=== PATIENT | female | born 1945 | race Hispanic/Latino ===

== ENCOUNTER 2017-06-07 17:35 | Emergency (ER) | payer MEDICARE, MEDICAID ==
[2017-06-07] MEDS ORDERED: Lidocaine 1% w/Epinephrine 1:100K 20 ML VIAL ONE (17:53)
[2017-06-07 19:21] LABS: #Eosinphils 0.1 thou/uL (0.0-0.7); #Lymphocytes 1.9 thou/uL (1.20-3.40); #Monocytes 0.7 thou/uL (0.11-0.59); #Neutrophils 4.2 thou/uL (1.40-6.50); %Basophils 0.7 % (0.0-1.0); %Eosinophils 1.4 % (0.0-10.0); %Lymphocytes 27.9 % (21.0-51.0); %Monocytes 9.9 % (0.0-10.0); %Neutrophils 60.2 % (42.0-75.0); Hemoglobin 11.4 g/dL (12.0-16.0); Mean Corpuscular HGB CONC 32.4 g/dL (32.0-36.0); Mean Corpuscular Hemoglobin 31.8 pg (27.0-31.0); Mean Corpuscular Volume 98.2 fl (81.0-99.0); Mean Platelet Volume 8.5 fL (7.4-10.4); Platelet Count 173 thou/uL (130-400); RBC Distribution Width 13.9 % (11.5-14.5); Red Blood Cell (RBC) Count 3.59 mill/uL (4.20-5.40)
[2017-06-07 19:27] LABS: Prothrombin Time 46.5 SEC (12.0-14.7)
[2017-06-07 19:30] LABS: INR-International Normal Ratio 4.7
== END 2017-06-07 19:45 | disposition home or self-care (01) ==
LOC: ERS 17:35
DX: T82.838A Hemorrhage due to vascular prosthetic devices, implants and grafts, initial encounter (principal); R79.1 Abnormal coagulation profile; I13.2 Hypertensive heart and chronic kidney disease with heart failure and with stage 5 chronic kidney disease, or end stage renal disease; N18.6 End stage renal disease; E10.22 Type 1 diabetes mellitus with diabetic chronic kidney disease; E78.5 Hyperlipidemia, unspecified
CPT/HCPCS: 12001; 36415; 85025; 85610; J2001

== ENCOUNTER 2017-10-05 09:57 | Emergency (ER) | payer MEDICARE, MEDICAID ==
[2017-10-05] MEDS ORDERED: Lidocaine 1% w/Epinephrine 1:100K 20 ML VIAL ONE (10:57)
== END 2017-10-05 11:26 | disposition home or self-care (01) ==
LOC: ERS 09:57
DX: T82.838A Hemorrhage due to vascular prosthetic devices, implants and grafts, initial encounter (principal); S41.131A Puncture wound without foreign body of right upper arm, initial encounter; E10.22 Type 1 diabetes mellitus with diabetic chronic kidney disease; I48.91 Unspecified atrial fibrillation; I12.0 Hypertensive chronic kidney disease with stage 5 chronic kidney disease or end stage renal disease; N18.6 End stage renal disease; E78.5 Hyperlipidemia, unspecified
CPT/HCPCS: 12001; J2001

== ENCOUNTER 2017-12-03 18:37 | Emergency (ER) | payer MEDICARE, MEDICAID ==
[2017-12-03] MEDS ORDERED: Lidocaine 1% w/Epinephrine 1:100K 20 ML VIAL ONE (18:50)
[2017-12-03 19:23] LABS: #Basophils 0.1 thou/uL (0.0-0.2); #Eosinphils 0.1 thou/uL (0.0-0.7); #Lymphocytes 1.8 thou/uL (1.20-3.40); #Monocytes 0.9 thou/uL (0.11-0.59); #Neutrophils 5.5 thou/uL (1.40-6.50); %Basophils 0.9 % (0.0-1.0); %Eosinophils 1.2 % (0.0-10.0); %Lymphocytes 21.9 % (21.0-51.0); %Monocytes 10.4 % (0.0-10.0); %Neutrophils 65.6 % (42.0-75.0); Hemoglobin 11.1 g/dL (12.0-16.0); Mean Corpuscular HGB CONC 34.5 g/dL (32.0-36.0); Mean Corpuscular Hemoglobin 33.1 pg (27.0-31.0); Mean Corpuscular Volume 95.9 fL (78.0-98.0); Mean Platelet Volume 7.6 fL (7.4-10.4); Platelet Count 134 thou/uL (130-400); RBC Distribution Width 12.6 % (11.5-14.5); Red Blood Cell (RBC) Count 3.36 mill/uL (4.20-5.40); White Blood Cell (WBC) Count 8.4 thou/uL (4.8-10.8)
[2017-12-03 19:27] LABS: INR-International Normal Ratio 1.8; PTT 36.5 SEC (22.9-36.1); Prothrombin Time 21.2 SEC (12.0-14.7)
[2017-12-03 19:42] LABS: ALT (SGPT) 34 U/L (8-55); AST (SGOT) 35 U/L (5-34); Albumin 3.8 g/dL (3.4-4.8); Alkaline Phosphatase 191 U/L (40-150); Anion Gap 15 mmol/L (10-20); BUN (Urea Nitrogen) 16 mg/dL (9.8-20.1); Bilirubin, Total 1.2 mg/dL (0.2-1.2); Calc. Creatinine Clearance 0 mL/min (70-130); Calcium 8.6 mg/dL (7.8-10.44); Carbon Dioxide 33 mmol/L (23-31); Chloride 94 mmol/L (98-107); Estimated GFR-MDRD 15; Globulin 4.1 g/dL (2.4-3.5); Glucose 110 mg/dL (83-110); Potassium 4.2 mmol/L (3.5-5.1); Protein, Total 7.9 g/dL (6.0-8.3); Sodium 138 mmol/L (136-145)
== END 2017-12-03 21:16 | disposition home or self-care (01) ==
LOC: ERS 18:37
DX: T82.838A Hemorrhage due to vascular prosthetic devices, implants and grafts, initial encounter (principal); I12.0 Hypertensive chronic kidney disease with stage 5 chronic kidney disease or end stage renal disease; E10.22 Type 1 diabetes mellitus with diabetic chronic kidney disease; N18.6 End stage renal disease; E78.5 Hyperlipidemia, unspecified; I48.91 Unspecified atrial fibrillation; Z99.2 Dependence on renal dialysis
CPT/HCPCS: 36415; 80053; 85025; 85610; 85730; 99284; J2001

== ENCOUNTER 2018-04-01 17:38 | Emergency (ER) | payer MEDICARE, MEDICAID ==
[2018-04-01 20:10] LABS: PTT 58.5 SEC (22.9-36.1); Prothrombin Time 50.5 SEC (12.0-14.7)
[2018-04-01 20:15] LABS: INR-International Normal Ratio 5.6
== END 2018-04-01 20:42 | disposition home or self-care (01) ==
LOC: ERS 17:38
DX: T82.838A Hemorrhage due to vascular prosthetic devices, implants and grafts, initial encounter (principal); R79.1 Abnormal coagulation profile; E10.9 Type 1 diabetes mellitus without complications; I48.91 Unspecified atrial fibrillation; E78.5 Hyperlipidemia, unspecified; I12.0 Hypertensive chronic kidney disease with stage 5 chronic kidney disease or end stage renal disease; N18.6 End stage renal disease; Z99.2 Dependence on renal dialysis
CPT/HCPCS: 12001; 36415; 85610; 85730

== ENCOUNTER 2018-09-04 13:37 | Outpatient (CLI) | payer MEDICARE, MEDICAID ==
--- NOTE | 2018-09-04 14:17 | RAD ---
RIGHT KNEE 4 VIEWS: HISTORY: Right knee pain. Prior fracture. COMPARISON: 05/28/2013. FINDINGS: There is bone demineralization. Old healed lateral tibial plateau fracture and proximal fibular shaf t fracture with bone demineralization and arthrosis and degenerative changes, particularly the latera l compartment progressive from the prior study. Prominent vascular calcifications. Possible small a mount of joint fluid. IMPRESSION: No significant acute process. Healed depressed lateral tibial plateau fracture and proximal fibular shaft fracture. Extensive vascular calcifications. No acute fracture. POS: OFF
--- NOTE | 2018-09-04 14:19 | RAD ---
FRONTAL AND LATERAL IMAGING OF THE RIGHT FEMUR: DATE: 09/04/2018. HISTORY: Hip pain radiating to the ankle. FINDINGS: The femur is not fully imaged on this examination. When combined with the 2-view examination of the right hip also performed 09/04/2018, the femur is completely imaged. There is extensive atheroscleroti c calcification within the imaged thigh/leg. There is prominent patellofemoral joint space narrowing with a small knee joint effusion. There is prominent medial and lateral compartment degenerative ch margareth involving the right knee, better assessed on dedicated right knee series. No displaced femur fr acture. Please see dictation for right knee and right hip also performed on 09/04/2018 for full assess ment. IMPRESSION: No displaced femur fracture. POS: TPC
--- NOTE | 2018-09-04 14:21 | RAD ---
RIGHT HIP 2 VIEWS: HISTORY: Right hip pain. COMPARISON: 05/28/2013. FINDINGS: There is severe arthrosis of the right hip joint with extensive subchondral cystic changes of the fem oral head with some flattening and deformity showing marked worsening when compared to the prior stud y. There may well be some component of avascular necrosis associated with this. Bone demineralizati on. Prominent vascular calcifications. No acute fracture. IMPRESSION: Very severe progressive arthrosis of the right hip joint with some extensive subchondral cystic kaur es of the femoral head with flattening and deformity, possibly having some component of avascular nec rosis in addition to the severe arthrosis. No acute fracture or dislocation. POS: OFF
== END 2018-09-04 13:38 | disposition home or self-care (01) ==
LOC: BICRAD 13:37
PROVIDERS: ATTEND Specialist
DX: M25.551 Pain in right hip (principal); M79.651 Pain in right thigh; M25.561 Pain in right knee; M16.11 Unilateral primary osteoarthritis, right hip; I70.90 Unspecified atherosclerosis

== ENCOUNTER 2018-09-26 14:27 | Observation (INO) | payer MEDICARE, MEDICAID ==
[2018-09-26 15:16] LABS: #Neutrophils 6.9 thou/uL (1.40-6.50); %Basophils 0.4 % (0.0-1.0); %Eosinophils 0.2 % (0.0-10.0); %Lymphocytes 20.2 % (21.0-51.0); %Monocytes 9.7 % (0.0-10.0); %Neutrophils 69.6 % (42.0-75.0); Hemoglobin 13.5 g/dL (12.0-16.0); Mean Corpuscular HGB CONC 31.6 g/dL (32.0-36.0); Mean Corpuscular Hemoglobin 32.4 pg (27.0-31.0); Mean Platelet Volume 9.2 fL (7.4-10.4); Platelet Count 156 thou/uL (130-400); RBC Distribution Width 14.5 % (11.5-14.5); Red Blood Cell (RBC) Count 4.16 mill/uL (4.20-5.40); White Blood Cell (WBC) Count 9.9 thou/uL (4.8-10.8)
[2018-09-26 15:29] LABS: ALT (SGPT) 21 U/L (8-55); AST (SGOT) 27 U/L (5-34); Albumin 3.7 g/dL (3.4-4.8); Alkaline Phosphatase 118 U/L (40-150); Anion Gap 25 mmol/L (10-20); BUN (Urea Nitrogen) 67 mg/dL (9.8-20.1); Bilirubin, Total 1.3 mg/dL (0.2-1.2); Calc. Creatinine Clearance 0 mL/min (70-130); Calcium 9.5 mg/dL (7.8-10.44); Carbon Dioxide 25 mmol/L (23-31); Chloride 89 mmol/L (98-107); Estimated GFR-MDRD 5; Globulin 3.8 g/dL (2.4-3.5); Glucose 128 mg/dL (83-110); Potassium 4.9 mmol/L (3.5-5.1); Protein, Total 7.5 g/dL (6.0-8.3); Sodium 134 mmol/L (136-145)
[2018-09-26 17:14] LABS: CKMB 2.4 ng/mL (0-6.6)
[2018-09-26 17:17] LABS: CK (CPK) 67 U/L (29-168); Lipase 15 U/L (8-78)
--- NOTE | 2018-09-26 18:07 | CT ---
CT brain noncontrast: HISTORY: 73-year-old female with dysarthria, dizziness, and generalized weakness. FINDINGS: There is no evidence of acute intra-axial or extra-axial hemorrhage. There is no midline shift or any other mass effect. There is no extra-axial fluid collection. There is no evidence of obstructive hydrocephalus. Calvarium is intact. There is diffuse brain parenchymal volume loss. There are low att enuation areas in the white matter. These are nonspecific, but in a patient of this age, they are probably chronic ischemic white matter changes due to microvascular atherosclerosis. IMPRESSION: 1) No acute intracranial findings. 2) involutional changes and chronic ischemic white matter changes.
--- NOTE | 2018-09-26 18:42 | RAD ---
RADIOGRAPH CHEST 2 VIEW: DATE: 09/26/2018 HISTORY: 73-year-old female with generalized weakness and dizziness after recent dialysis FINDINGS: There is cardiomegaly. There is no evidence of airspace density, pulmonary edema, pleural effusion, o r pneumothorax. IMPRESSION: 1) No acute pulmonary findings. 2) cardiomegaly without congestive heart failure.
[2018-09-26] MEDS ORDERED: Aspirin Chewable 81 MG TAB ONE (19:27)
--- NOTE | 2018-09-26 20:23 | RAD ---
LEFT SHOULDER THREE VIEWS: 09/26/18 HISTORY: Joint pain, dizziness and weakness. COMPARISON: 08/23/16. There is evidence for considerable deformity of the left humeral neck, evidence for an old nonunion f racture with some foreshortening. 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 No dislocation. No acute fracture. POS: RRE
[2018-09-26 20:57] LABS: Critical Call Chem Troponin I RESULT DECREASING; Troponin I 0.305 ng/mL (< 0.028)
[2018-09-26 21:20] LABS: INR-International Normal Ratio 1.5; Prothrombin Time 17.7 SEC (12.0-14.7)
[2018-09-26] MEDS ORDERED: Dextrose 5% in Water 1,000 ML IV PRN (22:22)
[2018-09-26] MEDS ORDERED: Dextrose 50% Abboject 50 ML SYRINGE IVP PRN (22:22)
[2018-09-26] MEDS ORDERED: Insulin Regular 300 UNITS/3 ML VIAL SC PRN (22:22)
[2018-09-26] MEDS ORDERED: Ondansetron ODT 4 MG TAB PO PRN (22:25)
[2018-09-26] MEDS ORDERED: Acetaminophen 325 MG TAB PO PRN (22:25)
[2018-09-26 22:27] VITALS: BMI 38.0
[2018-09-26 23:59] LABS: Troponin I 0.289 ng/mL (< 0.028)
--- NOTE | 2018-09-27 01:59 | HP ---
CHIEF COMPLAINT: Generalized weakness, missed dialysis appointment. HISTORY OF PRESENT ILLNESS: The patient is a 73-year-old female who has been on a regular scheduled dialysis for over 2 years. She overslept her dialysis earlier this morning and basically has not felt well since that time. She states that over the last several weeks, she has been returning from dialysis very lightheaded and weak, not actually falling or passing out, but becoming very close. These feelings have worsened recently, and she was brought to the emergency room by her family because of these feelings. In the ER, it is evident by BUN and creatinine that she needs dialysis, and she has elevated troponin as expected on dialysis patient. Dr. Patrick has already been consulted and will arrange for dialysis in the morning. PAST MEDICAL HISTORY: Significant for insulin-dependent diabetes, depression, atrial fibrillation, anticoagulated with Coumadin, dyslipidemia, hypertension, left humeral fracture that is almost 3 years old, she is also hypothyroid and hypertensive. End-stage renal disease from diabetic nephropathy, morbid obesity, diabetic retinopathy, congestive heart failure, and Chronically-fractured left proximal humerus. PAST SURGICAL HISTORY: Includes cholecystectomy, hysterectomy, and dialysis shunt placement in the right upper extremity. She has had breast biopsy, eye surgery, and back surgery as well as AV fistula placement. SOCIAL HISTORY: Lives with her sister who is her surrogate decision maker. Denies any alcohol or tobacco. She is retired. FAMILY HISTORY: Significant for dad who had diabetes and end-stage renal disease. MEDICATIONS: On admission include: 1. Synthroid 25 mcg daily. 2. Bystolic 10 mg daily. 3. Nifedipine XR 90 mg daily. 4. Losartan 100 mg daily. 5. Pristiq 50 mg daily. 6. Warfarin 6 mg daily. 7. Zocor 40 mg at bedtime. 8. Novolin 70/30, 25 units b.i.d. ALLERGIES: SHE HAS NO KNOWN DRUG ALLERGIES. 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 High school education. No alcohol, drugs, or smoking. REVIEW OF SYSTEMS: CONSTITUTIONAL: At the time of admission, no fever or fatigue. Just generalized weakness. HEENT: No drainage from eyes, ears, nose, or throat or open sores. CHEST: Denies shortness of breath or coughing. CARDIOVASCULAR: Denies chest pain or palpitations. GI: Denies any nausea, vomiting, or diarrhea. : Denies dysuria, frequency, or blood in urine or stool. MUSCULOSKELETAL: Has chronic limited range of motion of the left upper extremity due to a chronic fracture. Has general arthritis in the hips and knees, but otherwise no acute findings. SKIN: Without acute rashes or lesions. NEUROLOGIC: Denies headaches, blurred vision, trouble with mentation, or areas of hypesthesia or anesthesia. LABORATORY WORK: On admission, shows WBCs 9.9, hemoglobin 13.5, hematocrit 42.7 with platelets of 156. Sodium 134, potassium 4.9, chloride 89, CO2 of 25, BUN 67, creatinine 7.56 with a glucose of 128. Troponin expected elevated at 0.311. Liver functions unremarkable. CT of the brain unremarkable. Chest x-ray shows some heart enlargement, but no acute findings. ASSESSMENT: 1. Generalized weakness. 2. Noncompliance with medical therapy. 3. Missed dialysis appointment. 4. End-stage renal disease. 5. Elevated troponin due to renal disease. PLAN: Will be overnight stabilization with anticipated dialysis in the morning. Serial re-evaluation and discharge shortly thereafter. Job ID: [id number]
[2018-09-27] MEDS ORDERED: Levothyroxine Sodium 25 MCG TAB PO SCH (06:00)
[2018-09-27 06:57] LABS: INR-International Normal Ratio 1.4; Prothrombin Time 17.7 SEC (12.0-14.7)
[2018-09-27 07:10] LABS: Cardiac Risk 2.7 (Less than 4.5)
[2018-09-27 07:11] LABS: Hemoglobin A1c 6.1 % (4.0-6.0)
[2018-09-27] MEDS ORDERED: Losartan 25 MG TAB PO SCH (09:00)
[2018-09-27] MEDS: HumuLIN 70/30 (300 UNITS/3 ML VIAL) SC SCH ×2 (09:00→16:52)
[2018-09-27 09:44] LABS: Anion Gap 24 mmol/L (10-20); BUN (Urea Nitrogen) 75 mg/dL (9.8-20.1); Calc. Creatinine Clearance 9 mL/min (70-130); Calcium 8.6 mg/dL (7.8-10.44); Carbon Dioxide 22 mmol/L (23-31); Chloride 92 mmol/L (98-107); Estimated GFR-MDRD 5; Glucose 99 mg/dL (83-110); Potassium 4.3 mmol/L (3.5-5.1); Sodium 134 mmol/L (136-145)
--- NOTE | 2018-09-27 10:25 | CON ---
DATE OF CONSULTATION: HISTORY OF PRESENT ILLNESS: Ms. Yee is a 73-year-old female with ESRD-on maintenance hemodialysis. The patient was admitted due to generalized malaise and persistent dizziness. She has not been feeling well in the last several days. She has missed her dialysis treatment. She is now admitted for further management. We are now being consulted for her maintenance hemodialysis. Due to her missed dialysis session yesterday, I am currently dialyzing the patient. At the bedside, supervising her dialysis. REVIEW OF SYSTEMS: Occasional joint pains. No nausea. No vomiting. Positive for dizziness. Positive for decreased energy. Positive for generalized malaise. No nausea. No vomiting. No fever or chills. No productive cough. No dysuria. No urinary frequency. No syncopal episode. No abdominal pain. No new skin rash. No shortness of breath. No chest pain. PAST MEDICAL HISTORY: Includes the following, 1. ESRD currently on maintenance hemodialysis. 2. Type 2 diabetes mellitus. 3. Longstanding hypertension. 4. Hypothyroidism. 5. Depression. 6. History of morbid obesity. 7. Diabetic retinopathy. 8. Hyperlipidemia. 9. Status post CHF. PAST SURGICAL HISTORY: Status post AV fistula placement, status post hysterectomy with salpingo-oophorectomy, status post back surgery, status post cuffed dialysis catheter placement, status post eye surgery, status post breast biopsy. SOCIAL HISTORY: The patient is single, lives in [place], . No children. Lives alone. 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 Education, high school. No alcohol. No history of smoking. No IV drug abuse. Status post blood transfusion. ALLERGIES: NONE. TRAUMA: Status post comminuted left proximal humerus fracture, conservative management. No surgery was done. IMMUNIZATION: Up-to-date. HOSPITALIZATION: Please see past medical history. FAMILY HISTORY: Positive family history of ESRD. PHYSICAL EXAMINATION: VITAL SIGNS: Blood pressure 103/45, heart rate 64, respiratory rate 16, temperature 97.6, and pulse ox 100%. GENERAL: Awake, alert, supine, morbidly obese. SKIN: Adequate turgor. HEENT: She has pinkish conjunctivae. Anicteric sclerae. NECK: No neck mass. No carotid bruits. No JVD. CHEST: No deformities. LUNGS: Clear breath sounds. No wheezing. No crackles. HEART: Normal sinus rhythm. No murmur. No gallops. No rubs. ABDOMEN: Globular, soft, nontender. No masses. EXTREMITIES: No edema. No deformities. NEUROLOGICAL: Moving all extremities. No tremors. No asterixis. MEDICATIONS: Medications of September 27, 2018, 1. Lipitor 40 mg at bedtime. 2. Humulin 70/30, 25 units subcu b.i.d. 3. Losartan 100 mg once a day. 4. Bystolic 10 mg daily. 5. Venlafaxine 75 mg once a day. 6. Coumadin as directed. LABORATORY DATA: Laboratories of September 26, 2018, white count 9.9, hemoglobin 13.5. Sodium 134, potassium 4.9, chloride 89, carbon dioxide 25, BUN 67, creatinine 7.56, glucose 128, calcium 9.5, albumin 3.7, globulin 3.8. Troponin I 0.305. TSH 3.1. ASSESSMENT AND PLAN: 1. End-stage renal disease, stable. We will continue current hemodialysis regimen. I plan to do a 3-hour hemodialysis today, then resume back to 4-hour dialysis in a.m. Fluid removal will only be removed as tolerated by the patient. 2. Hypertension, good control. BP is running actually in the low normal. Adjust BP medications as needed. 3. Generalized malaise-the patient may have a viral syndrome. Continue to observe. The patient denies any fever, but has generalized malaise and has not been feeling well. She denies any chest pain or shortness of breath. Overall, agree with current management. Job ID: [id number]
[2018-09-27] MEDS: Nebivolol HCl 5 MG TAB PO SCH (13:18)
[2018-09-27] MEDS: Venlafaxine HCl XR 75 MG CAP PO SCH (14:29)
[2018-09-27] MEDS ORDERED: Warfarin Sodium 3 MG TAB PO SCH (17:00)
[2018-09-27] MEDS ORDERED: Atorvastatin Calcium 20 MG TAB PO SCH (21:00)
[2018-09-28 05:03] LABS: #Basophils 0.1 thou/uL (0.0-0.2); #Eosinphils 0.1 thou/uL (0.0-0.7); #Lymphocytes 1.9 thou/uL (1.20-3.40); #Monocytes 0.8 thou/uL (0.11-0.59); #Neutrophils 4.9 thou/uL (1.40-6.50); %Basophils 0.9 % (0.0-1.0); %Eosinophils 0.7 % (0.0-10.0); %Lymphocytes 24.2 % (21.0-51.0); %Monocytes 10.6 % (0.0-10.0); %Neutrophils 63.6 % (42.0-75.0); Hemoglobin 11.8 g/dL (12.0-16.0); Mean Corpuscular HGB CONC 32.3 g/dL (32.0-36.0); Mean Corpuscular Hemoglobin 33.3 pg (27.0-31.0); Mean Platelet Volume 8.7 fL (7.4-10.4); Platelet Count 149 thou/uL (130-400); RBC Distribution Width 14.6 % (11.5-14.5); Red Blood Cell (RBC) Count 3.56 mill/uL (4.20-5.40); White Blood Cell (WBC) Count 7.7 thou/uL (4.8-10.8)
[2018-09-28 05:36] LABS: Anion Gap 20 mmol/L (10-20); BUN (Urea Nitrogen) 36 mg/dL (9.8-20.1); Calc. Creatinine Clearance 14 mL/min (70-130); Calcium 9.2 mg/dL (7.8-10.44); Carbon Dioxide 25 mmol/L (23-31); Chloride 96 mmol/L (98-107); Estimated GFR-MDRD 7; Glucose 118 mg/dL (83-110); Potassium 3.8 mmol/L (3.5-5.1); Sodium 137 mmol/L (136-145)
--- NOTE | 2018-09-28 09:10 | PRG ---
DATE OF SERVICE: 09/28/2018 SUBJECTIVE: Ms. Yee is a 73-year-old female with ESRD and was admitted for generalized malaise. She has a scheduled cardiac stress test this morning. She underwent dialysis yesterday since she has missed dialysis in the last several days. I have scheduled her for another dialysis treatment as stress test scheduled this morning. No chest pain. No shortness of breath, but feels tired. OBJECTIVE: VITAL SIGNS: Blood pressure is 107/55, heart rate 69, respiratory rate 16, temperature 98.2, and pulse oximetry 93%. GENERAL: The patient is noted to be awake, alert, comfortable, not in distress. SKIN: Adequate turgor. HEENT: She has pinkish conjunctivae. Anicteric sclerae. No neck mass. No carotid bruits. No JVD. CHEST: No deformities. Lungs clear breath sounds. No wheezing. No crackles. HEART: Normal sinus rhythm. No murmur. No gallops. No rubs. ABDOMEN: Globular, soft, nontender. No masses. EXTREMITIES: No edema. No deformities. MEDICATIONS: Medications of July 29, 2018, reviewed. LABORATORY DATA: Of September 28, 2018, white count 7.7, hemoglobin 11.8, sodium 137, potassium 3.8, chloride 96, carbon dioxide 25, BUN 36, creatinine 5.69, glucose 118, calcium 9.2. TSH 2.1. ASSESSMENT AND PLAN: 1. End-stage renal disease, stable. We will continue current Tuesday, , and Tuesday hemodialysis regimen. Due to the low blood pressure, minimal fluid removal. 2. Hypotension - blood pressure medications on hold. Would suggest we discontinue losartan completely. 3. Generalized malaise - cardiac stress test scheduled this a.m. Continue current supportive care. 4. Overall agree with current management. Job ID: [id number]
[2018-09-28] MEDS: Venlafaxine HCl XR 75 MG CAP PO SCH (09:46)
[2018-09-28] MEDS: HumuLIN 70/30 (300 UNITS/3 ML VIAL) SC SCH ×2 (09:47→17:13)
[2018-09-28] MEDS: Nebivolol HCl 5 MG TAB PO SCH (09:47)
--- NOTE | 2018-09-28 14:16 | CON ---
DATE OF CONSULTATION: 09/28/2018 REASON FOR CONSULTATION: Positive troponins. HISTORY OF PRESENT ILLNESS: Ms. Yee is a pleasant 73-year-old female who comes to the hospital for not feeling well. She admits to generalized malaise and dizziness mostly after dialysis days. She states that yesterday she felt she overslept in dialysis and felt significantly worse than she has before, so she decided to come in for evaluation. She denies any chest pain, tightness, pressure, or shortness of breath. She has been evaluated in the past for coronary artery disease. She had a stress test that was abnormal about 4 years ago in 2016. She underwent heart catheterization and it showed a 50% LAD lesion that was heavily calcified. This was treated medically. She currently has no symptoms of angina. PAST MEDICAL HISTORY: 1. End-stage renal disease, on hemodialysis by Dr. Patrick. 2. Type 2 diabetes. 3. Hypertension. 4. Hypothyroidism. 5. Depression. 6. Morbid obesity. 7. Hyperlipidemia. 8. Coronary artery disease, moderate LAD lesion. PAST SURGICAL HISTORY: 1. AV fistula placement. 2. Hysterectomy with salpingo-oophorectomy. 3. Back surgery. 4. Dialysis catheter placement. 5. Eye surgery. 6. Breast biopsy. SOCIAL HISTORY: No alcohol, tobacco, or drugs. 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 No kids. ALLERGIES: NO KNOWN DRUG ALLERGIES. OUTPATIENT MEDICATIONS: Include: 1. Calcium acetate. 2. Levothyroxine 25 mcg a day. 3. Humulin 70/30. 4. q.6 p.r.n. pain. 5. Pristiq. 6. Metoprolol 50 mg daily. 7. Meloxicam. 8. Losartan 100 mg at bedtime. 9. Nebivolol 10 mg a day. 10. Nifedipine 90 mg a day. 11. Warfarin 6 mg daily. 12. Simvastatin 40 mg q.p.m. REVIEW OF SYSTEMS: A 12-point review of systems was done and was found to be negative unless stated in history of present illness. PHYSICAL EXAMINATION: VITAL SIGNS: Temperature 98.2, pulse 76, respiratory rate 15, saturation 96% on room air, and blood pressure 91/54. GENERAL: Awake, alert, and oriented x3, in no distress. HEENT: Normocephalic and atraumatic. NECK: Supple. LUNGS: Clear. CARDIOVASCULAR: S1 and S2. No S3 or S4. No murmurs. ABDOMEN: Soft. Positive bowel sounds. EXTREMITIES: No edema. SKIN: Warm and dry. LABORATORY DATA: Laboratory work was reviewed. CBC was reviewed. Chemistries were reviewed. Toxicology, beta hydroxybutyrate was normal. Chest x-ray was reviewed. Troponins were reviewed at 0.31, 0.30, 0.28. This is actually lower than her normal baseline, she was as high as 6 at the time where she had her heart catheterization. ASSESSMENT AND PLAN: 1. Elevated troponins: Likely demand elevation from being hypotensive. She has a blood pressure in the 80s, likely from a little volume depletion. No indication for further risk stratification at this time. She is completely asymptomatic from the cardiac standpoint. 2. End-stage renal disease, on hemodialysis with Dr. Patrick. Thank you for letting me to participate in the care of your patient. We will sign off. She may be discharged to home from the cardiac perspective at any point. Otherwise, Dr. Dias, her primary house mover, will follow up in the morning. Job ID: [id number]
--- NOTE | 2018-09-28 15:23 | NM ---
Cardiac SPECT: HISTORY: Weakness TECHNIQUE: A rest only myocardial perfusion scan was performed following the intravenous administrati on of 27 mCi technetium 99m sestamibi. FINDINGS: There defects/areas of decreased tracer localization in the lateral wall, inferior and anterior lindsay .
[2018-09-28] MEDS ORDERED: Warfarin Sodium 7.5 MG TAB PO SCH (17:00)
[2018-09-28 19:23] VITALS: BP 118/56; TEMP 97.8
== END 2018-09-28 19:40 ==
LOC: ERS 14:27 → ERHOLD 19:55 → 2SW 23:15
PROVIDERS: ADMIT Specialist; ATTEND Specialist
DX: R53.1 Weakness (principal); R42 Dizziness and giddiness; E11.21 Type 2 diabetes mellitus with diabetic nephropathy; I13.2 Hypertensive heart and chronic kidney disease with heart failure and with stage 5 chronic kidney disease, or end stage renal disease; E11.22 Type 2 diabetes mellitus with diabetic chronic kidney disease; I50.9 Heart failure, unspecified; N18.6 End stage renal disease; F32.9 Major depressive disorder, single episode, unspecified; I48.91 Unspecified atrial fibrillation; E78.5 Hyperlipidemia, unspecified; E03.9 Hypothyroidism, unspecified; E11.319 Type 2 diabetes mellitus with unspecified diabetic retinopathy without macular edema; M84.422A Pathological fracture, left humerus, initial encounter for fracture; I95.9 Hypotension, unspecified; I25.10 Atherosclerotic heart disease of native coronary artery without angina pectoris; I25.84 Coronary atherosclerosis due to calcified coronary lesion; E66.01 Morbid (severe) obesity due to excess calories; Z68.37 Body mass index [BMI] 37.0-37.9, adult; Z99.2 Dependence on renal dialysis; Z79.01 Long term (current) use of anticoagulants; Z79.899 Other long term (current) drug therapy; Z79.4 Long term (current) use of insulin; Z91.14 Patient's other noncompliance with medication regimen
CPT/HCPCS: 70450; 71046; 73030; 78451; 80048 ×2; 80061; 82010; 82550; 82553; 82962 ×2; 83036; 83690; 83735; 84443; 84484 ×2; 85025; 85610 ×2; 93005; 94760; 96360; 97116; 97139; 99285; A9500; G0378 ×2; 36415; 36416; 80053; 90935; G0257

== ENCOUNTER 2018-10-05 16:34 | Emergency (ER) | payer MEDICARE, MEDICAID ==
[~2018-10-05 16:34] MED LIST: Atropine Sulfate 1 mg/10 ml Syringe ONE; Calcium Chloride 1 GM/10 ML Abboject SYRINGE ONE; EPINEPHrine 1 MG/10 ML Abboject SYRINGE ONE; Rocuronium Bromide 10 MG/ML (10ML VIAL) ONE; Sodium Bicarb 5 MEQ/10 ML Abboject 4.2% SYRINGE ONE
[2018-10-05] MEDS ORDERED: Ketamine 50 MG/ML (10ML VIAL) ONE (16:59)
[2018-10-05] MEDS ORDERED: fentaNYL Citrate/PF 2,000 MCG in Sodium Chloride 0.9% 60 ML IV SCH (17:14)
[2018-10-05 17:30] LABS: #Basophils 0.1 thou/uL (0.0-0.2); %Basophils 0.5 % (0.0-1.0); %Eosinophils 0.3 % (0.0-10.0); %Lymphocytes 21.1 % (21.0-51.0); %Monocytes 6.9 % (0.0-10.0); %Neutrophils 71.2 % (42.0-75.0); Hemoglobin 12.8 g/dL (12.0-16.0); Mean Corpuscular HGB CONC 31.8 g/dL (32.0-36.0); Mean Corpuscular Hemoglobin 33.2 pg (27.0-31.0); Mean Platelet Volume 9.5 fL (7.4-10.4); Platelet Count 135 thou/uL (130-400); RBC Distribution Width 14.8 % (11.5-14.5); Red Blood Cell (RBC) Count 3.86 mill/uL (4.20-5.40)
[2018-10-05 17:47] LABS: ALT (SGPT) 74 U/L (8-55); AST (SGOT) 101 U/L (5-34); Albumin 3.4 g/dL (3.4-4.8); Alkaline Phosphatase 118 U/L (40-150); Anion Gap 22 mmol/L (10-20); BUN (Urea Nitrogen) 42 mg/dL (9.8-20.1); Bilirubin, Total 1.5 mg/dL (0.2-1.2); CK (CPK) 77 U/L (29-168); Calc. Creatinine Clearance 0 mL/min (70-130); Calcium 11.8 mg/dL (7.8-10.44); Carbon Dioxide 20 mmol/L (23-31); Chloride 95 mmol/L (98-107); Estimated GFR-MDRD 6; Globulin 3.3 g/dL (2.4-3.5); Glucose 142 mg/dL (83-110); Lipase 41 U/L (8-78); Potassium 4.9 mmol/L (3.5-5.1); Protein, Total 6.7 g/dL (6.0-8.3); Sodium 132 mmol/L (136-145)
[2018-10-05 18:08] LABS: CKMB 2.3 ng/mL (0-6.6)
== END 2018-10-05 17:45 | disposition expired ==
LOC: ERS 16:34
DX: I46.9 Cardiac arrest, cause unspecified (principal); E11.9 Type 2 diabetes mellitus without complications; I48.91 Unspecified atrial fibrillation; E78.5 Hyperlipidemia, unspecified; I12.0 Hypertensive chronic kidney disease with stage 5 chronic kidney disease or end stage renal disease; N18.6 End stage renal disease
CPT/HCPCS: 31500; 36415; 82550; 82553; 83605; 83690; 83880; 84484; 92950; 93005; 96374; 96375; J0171; J0461; J3010; J3490